=== PATIENT | male | born 1930 | race Caucasian/White ===

== ENCOUNTER → 2016-09-24 | Day surgery (SDC) | payer MEDICARE, OTHER ==
[~2016-09-24] MED LIST: ASPI-630 PO; ATOR40TA59 PO; AZEL137S3 NS; CA C1TAB36 PO; CARV3.122 PO; CLON0.2T PO; DARB40VI SQ; FERR-26 PO; GUAI100L12 PO; HYDROmorphone 2 MG/ML VIAL IV PRN; IV RINGERS,LACTATED 1000ML 1,000 ML IV SCH; LEVO75TA5 PO; LIDOCAINE 1% 1 ML SYRINGE. ID PRN; LIDOCAINE 2% PF Vial for OR 5 ML VIAL. ONE; LORA10TA3 PO; MELA3TAB2 PO; MORPHINE SULFATE 2 MG/ML DISP.SYRIN. IV PRN; MULT-18 PO; ONDA4TAB11 IV; ONDANSETRON PF 4 MG/2 ML VIAL. IV PRN; PANT40TA5 PO; POLY17PO29 PO; PROCHLORPERAZINE 10 MG/2 ML VIAL. IV PRN; PROPOFOL 20 ML IV ONE; SENN-6 PO; SEVE800T9 PO; fentaNYL PF VIAL 100 MCG/2 ML VIAL IV PRN
[2016-09-24 13:09] VITALS: BP 156/74
== END | disposition home or self-care (01) ==
LOC: ENDOS 12:01
PROVIDERS: ATTEND Internal Medicine Gastroenterology
DX: K29.50 Unspecified chronic gastritis without bleeding (principal); K21.9 Gastro-esophageal reflux disease without esophagitis; I10 Essential (primary) hypertension; M19.90 Unspecified osteoarthritis, unspecified site; E78.2 Mixed hyperlipidemia; F17.200 Nicotine dependence, unspecified, uncomplicated; Z72.89 Other problems related to lifestyle; Z85.46 Personal history of malignant neoplasm of prostate; E78.00 Pure hypercholesterolemia, unspecified; I48.91 Unspecified atrial fibrillation; D64.9 Anemia, unspecified; I25.10 Atherosclerotic heart disease of native coronary artery without angina pectoris
CPT/HCPCS: 43235; J2704

== ENCOUNTER 2016-11-09 11:37 | Observation (INO) | payer MEDICARE, OTHER ==
[2016-11-09] VITALS (9 sets, daily range): BP systolic 123–169; BP diastolic 57–74
[~2016-11-09] VITALS: Ht 185.4 cm; Wt 90.3 kg
[~2016-11-09 11:37] MED LIST changes: +ACET325T9 PO; +AMIO200T2 PO; +FEXO1TAB27 PO; -HYDROmorphone 2 MG/ML VIAL IV PRN; -IV RINGERS,LACTATED 1000ML 1,000 ML IV SCH; -LIDOCAINE 1% 1 ML SYRINGE. ID PRN; -LIDOCAINE 2% PF Vial for OR 5 ML VIAL. ONE; +LUBI8CAP4 PO; -MORPHINE SULFATE 2 MG/ML DISP.SYRIN. IV PRN; -ONDANSETRON PF 4 MG/2 ML VIAL. IV PRN; -PROCHLORPERAZINE 10 MG/2 ML VIAL. IV PRN; -PROPOFOL 20 ML IV ONE; +SUCR1TAB PO; +TAMS0.4C2 PO; +TRAZ50TA15 PO; -fentaNYL PF VIAL 100 MCG/2 ML VIAL IV PRN
[2016-11-09] MEDS ORDERED: IV RINGERS,LACTATED 1000ML 1,000 ML IV ONE (12:00)
[2016-11-09] MEDS ORDERED: ceFAZolin 2GM PREMIX 2 GM/50 ML BAG IV ONE (12:00)
[2016-11-09 12:33] LABS: BASO % 1 % (0-3); EOS % 2 % (0-3); HEMATOCRIT 34.4 % (39.0-53.0); HEMOGLOBIN 11.6 g/dL (13.0-17.5); LYMPH # 1.4 x10^3/uL (1.0-4.8); LYMPH % 21 % (24-48); MEAN CORPUSCULAR HEMOGLOBIN 33 pg (25-35); MEAN CORPUSCULAR HGB CONC 34 g/dL (31-37); MEAN CORPUSCULAR VOLUME 97 fL (79-100); MONO % 8 % (0-9); NEUT % 68 % (31-73); PLATELET COUNT 179 x10^3/uL (140-400); RED BLOOD COUNT 3.54 x10^6/uL (4.30-5.70); RED CELL DISTRIBUTION WIDTH 13.7 % (11.5-14.5); WHITE BLOOD COUNT 6.6 x10^3/uL (4.0-11.0)
[2016-11-09] MEDS ORDERED: DEXAMETHASONE SOD PHOS 20 MG/5 ML VIAL. ONE (14:30)
[2016-11-09] MEDS ORDERED: ONDANSETRON PF 4 MG/2 ML VIAL. ONE (14:30)
[2016-11-09] MEDS ORDERED: fentaNYL PF VIAL 100 MCG/2 ML VIAL ONE ×4 (14:30→18:14)
[2016-11-09] MEDS ORDERED: LIDOCAINE 2% PF Vial for OR 5 ML VIAL. ONE (14:30)
[2016-11-09] MEDS ORDERED: PROPOFOL 20 ML IV ONE (14:30)
[2016-11-09] MEDS ORDERED: NEOSTIGMINE 10 MG/10 ML VIAL. ONE (14:36)
[2016-11-09] MEDS ORDERED: GLYCOPYRROLATE 1 MG/5 ML VIAL. ONE ×2 (14:37→17:07)
[2016-11-09] MEDS ORDERED: SEVOFLURANE > 120 MINUTES. IH ONE (15:08)
[2016-11-09] MEDS ORDERED: BUPIVAC MPF-EPI 0.5%-1:200000 30 ML VIAL. ONE (15:35)
[2016-11-09] MEDS ORDERED: IOHEXOL 300 MG/ML 50 ML VIAL. ONE (15:35)
[2016-11-09] MEDS ORDERED: FAMOTIDINE 20 MG/2 ML VIAL ONE (16:21)
[2016-11-09] MEDS ORDERED: SURGICEL HEMOSTAT 4X8 EACH. ONE (16:53)
--- NOTE | 2016-11-09 17:00 | RAD ---
Intraoperative cholangiogram Indication: Intraoperative cholangiogram Technique: Fluoroscopic intraoperative cholangiogram with 33 seconds of fluoroscopy time and 6 images. Comparison: None Findings: The common bile duct, cystic duct, common hepatic duct and proximal right and left hepatic ducts are opacified with contrast. No filling defect is seen within the common bile duct. Narrowing is seen in the distal CBD in the ampullary region. Impression: No CBD filling defects to suggest stones.
[2016-11-09] MEDS ORDERED: NEOSTIGMINE METHYLSULFATE 5 MG/5 ML SYRINGE. ONE (17:08)
[2016-11-09] MEDS ORDERED: IV RINGERS,LACTATED 1000ML 1,000 ML IV SCH (17:13)
[2016-11-09] MEDS ORDERED: ONDANSETRON PF 4 MG/2 ML VIAL. IV PRN ×2 (17:15→17:30)
[2016-11-09] MEDS ORDERED: MORPHINE SULFATE 2 MG/ML DISP.SYRIN. IV PRN (17:15)
[2016-11-09] MEDS ORDERED: fentaNYL PF VIAL 100 MCG/2 ML VIAL IV PRN (17:15)
[2016-11-09] MEDS ORDERED: HYDROmorphone 2 MG/ML VIAL IV PRN ×2 (17:15→17:30)
[2016-11-09] MEDS ORDERED: PROCHLORPERAZINE 10 MG/2 ML VIAL. IV PRN (17:15)
[2016-11-09] MEDS ORDERED: LIDOCAINE 1% 1 ML SYRINGE. ID PRN (17:15)
[2016-11-09] MEDS: IV 1/2 NORMAL SALINE 1,000 ML IV SCH (17:18)
--- NOTE | 2016-11-09 17:18 | PDOC4 ---
Operative Note Operative Note Operative Note: Preoperative Diagnosis: Calculous cholecystitis Postoperative Diagnosis: Same Procedure: Laparoscopic cholecystectomy with intraoperative cholangiogram Surgeons: Jeff Chief Analytics Officer: Johanna DAVIDSON Anesthesia: Gen. Estimated Blood Loss: 25 mL Specimen: Gallbladder to pathology Drains: None Complications: None Indications: The patient is an 86-year-old male who is been experiencing recurrent upper abdominal pain. His evaluation identified gallstones. Surgical treatment was offered by means of a laparoscopic cholecystectomy. The risks of surgery were discussed which include bleeding, infection, bile duct injury, bile leak, pain, the potential for additional surgeries or procedures. The patient understands and would like to proceed. Description: The patient was taken to the operating room and laid supine on the operating table. General anesthesia was performed. The abdomen was prepped with ChloraPrep and draped in a standard surgical fashion. A small infraumbilical incision was made with a scalpel. The Veress needle was then inserted and a pneumoperitoneum was then created. A 5 mm trocar was then inserted and the laparoscope was introduced. In the upper midabdomen an 11 mm trocar was inserted and in the right upper quadrant one 5 mm trocar was inserted and one 2.3 mm mini lap grasper was inserted. There were several upper abdominal adhesions and adhesions of omentum to the gallbladder. These were freed up and the gallbladder was retracted cephalad. The cystic duct was dissected free from surrounding tissues. One clip was placed on the duct near the gallbladder junction. An opening was made in the duct and a cholangiocatheter placed within and secured with a clip. Using contrast dye and fluoroscopy an intraoperative cholangiogram was performed that appeared unremarkable. The clip and catheter were then withdrawn. Three clips were placed on the cystic duct and it was divided. The cystic artery was then identified, dissected free, doubly clipped and divided as well. A posterior branch was also clipped and divided. The gallbladder was then mobilized away from the liver with cautery. The gallbladder appeared to have a somewhat prominent fibrotic reaction consistent with chronic cholecystitis. This obscured some of the separation planes of the liver. The gallbladder was fully mobilized and a surgicel pack was placed on the gallbladder fossa to assist with hemostasis. The gallbladder was then placed in an endoscopic bag and extracted at the superior trocar site. The fascia there was closed with 0 Vicryl sutures. All blood and irrigation fluid was suctioned and hemostasis was good. The remaining ports were removed and the pneumoperitoneum was relieved. The skin incisions were injected with half percent Marcaine with epinephrine, and all were closed using 4-0 Monocryl suture. Steri-Strips and dressings were then applied. The patient tolerated the procedure well and was sent to the recovery room in stable condition. At the end of the case all counts were correct. DAISY GRIFFIN MD Nov 09, 2016 17:18
[2016-11-09] MEDS ORDERED: MORPHINE SULFATE 10 MG/ML VIAL. ONE (17:21)
[2016-11-09] MEDS ORDERED: 0.9 % SODIUM CHLORIDE 10 ML DISP.SYRIN. IV PRN (17:30)
[2016-11-09] MEDS ORDERED: DEXTROSE 50% 25 GM / 50ML DISP.SYRIN. IV PRN (17:30)
[2016-11-09] MEDS ORDERED: HYDROcodone/APAP 5/325MG 1 TAB TABLET PO PRN (17:30)
[2016-11-09] MEDS: fentaNYL PF VIAL 100 MCG/2 ML VIAL IV PRN ×3 (17:32→18:17)
[2016-11-09] MEDS ORDERED: PROCHLORPERAZINE 10 MG/2 ML VIAL. ONE (17:33)
[2016-11-09] MEDS ORDERED: ATORVASTATIN CALCIUM 40 MG TABLET. PO SCH (21:00)
[2016-11-09] MEDS: AZELASTINE NASAL SPRAY 30ML BOTTLE. NS SCH (21:00)
[2016-11-09] MEDS ORDERED: TAMSULOSIN 0.4 MG CAP.ER.24H. PO SCH (21:00)
[2016-11-09] MEDS ORDERED: traZODone 50 MG TABLET. PO SCH (21:00)
[2016-11-09] MEDS: LUBIPROSTONE 8 MCG CAPSULE PO SCH (21:10)
[2016-11-09] MEDS: SENNOSIDES/DOCUSATE 8.6/50MG TABLET. PO SCH (21:10)
[2016-11-09] MEDS: HYDROcodone/APAP 5/325MG 1 TAB TABLET PO PRN (21:13)
--- NOTE | 2016-11-09 23:50 | ACF ---
Admission Forms Criteria ABDOMINAL PAIN Clinical Indications for Admission to Inpatient Care ( chefornak/check or initial the applicable condition/criteria): Admission is indicated for ANY ONE of the following (1)(2)(3)(4)(5)(6): [X]I. Surgery needed that cannot be performed on ambulatory basis [ ]II. Peritoneal signs present (eg, rebound tenderness, rigidity) [ ]III. Evaluation requires patient to not eat or drink for extended period ( eg, more than 24 hours). [ ]IV. Inpatient admission required[B] rather than observation care (see Abdominal Pain: Observation Care guideline as appropriate) because of ANY ONE of the following(7)(8)(9): [ ] a) Hemodynamic instability [ ]b) Severe pain requiring acute inpatient management [ ]c) Identification of etiology or finding that requires inpatient care (eg, aortic dissection, free air,bowel ischemia)(10) [ ]d) Absent bowel sounds with complete ileus (11) [ ]e) Signs of intestinal obstruction[C] [ ]f) Suspected toxic megacolon [ ]g) Severe electrolyte abnormalities requiring inpatient care [ ]h) High fever or infection requiring inpatient admission as indicated by ANY ONE of the following (12)(13): [ ]i) Appropriate outpatient or observation care antimicrobial treatment unavailable, not effective, or not feasible [ ]ii) Documented bacteremia [ ]iii) Temperature greater than 104.9 degrees F (40.5 degrees C) (oral) [ ]iv) Temperature greater than 103.1 degrees F (39.5 degrees C) ( oral) or less than 96.8 degrees F (36 degrees C) (rectal) that does not respond to all emergency treatment measures [ ]i) IV fluid required rather than oral rehydration to replace significant ongoing (eg, for greater than 24 hours) losses (greater than 3 L/m2 per day)(14)(15) [ ]j) Percutaneous or open drainage (eg, abscess, biliary tract) procedures [ ]k) Parenteral nutrition regimen that must be implemented on inpatient basis [ ]l) Other condition, treatment, or monitoring requiring inpatient admission Extended stay beyond goal length of stay may be needed for (1)(3)(4)(10)(16): [ ]a) Surgery (e.g., colectomy, revascularization procedure) [ ]b) Persistent abdominal pain with suspected intra-abdominal process [ ]c) Diagnosed condition requiring continued stay (e.g., pancreatitis, complicated diverticulitis) The original [facility] content created by [facility] has been revised. The portions of the content which have been revised are identified through the use of italic text, and [facility] has neither reviewed nor approved the modified material.All other unmodified content is copyright [facility]. Please see references footnoted in the original [facility] edition 2015 Admission Criteria Met?: Yes MICHELLE TAN Nov 09, 2016 23:50
[2016-11-10 03:54] VITALS: BP 148/68
[2016-11-10] MEDS: HYDROcodone/APAP 5/325MG 1 TAB TABLET PO PRN ×2 (06:30→11:39)
[2016-11-10 07:00] VITALS: BP 134/60
[2016-11-10] MEDS ORDERED: LEVOTHYROXINE 75 MCG TABLET PO SCH (07:00)
[2016-11-10] MEDS ORDERED: PANTOPRAZOLE 40 MG TABLET.DR. PO SCH (07:30)
[2016-11-10] MEDS: LUBIPROSTONE 8 MCG CAPSULE PO SCH (08:45)
[2016-11-10] MEDS: SUCRALFATE 1 GM TABLET. PO SCH ×2 (08:45→11:38)
[2016-11-10] MEDS: SENNOSIDES/DOCUSATE 8.6/50MG TABLET. PO SCH (08:46)
[2016-11-10] MEDS ORDERED: AMIODARONE HCL 200 MG TABLET. PO SCH (09:00)
[2016-11-10] MEDS ORDERED: ASPIRIN CHEWABLE 81 MG TABLET. PO SCH (09:00)
[2016-11-10] MEDS ORDERED: FERROUS SULFATE 325 MG TABLET. PO SCH (09:00)
[2016-11-10] MEDS: AZELASTINE NASAL SPRAY 30ML BOTTLE. NS SCH (09:40)
[2016-11-10] MEDS: IV 1/2 NORMAL SALINE 1,000 ML IV SCH (09:41)
[2016-11-10 11:00] VITALS: BP 119/58
--- NOTE | 2016-11-10 12:19 | PDOC ---
FRANKIE HOLM [employer] SUPERVISOR 11/10/16 1219: SURGICAL PROGRESS NOTE Subjective tolerating diet feeling well PT to see prior to discharge Vital Signs Vital Signs Date Time Temp Pulse Resp B/P (MAP) Pulse Ox O2 Delivery O2 Flow Rate FiO2 11/10/16 11:39 Room Air 11/10/16 11:00 97.5 57 16 119/58 (78) 93 97.5 11/10/16 03:54 2.0 I&O Intake and Output 11/10/16 07:00 Intake Total 2690 ml Balance 2690 ml Intake Oral 240 ml IV Total 1950 ml Other 500 ml General: Alert, Oriented X3, Cooperative, No acute distress Abdomen: Soft, Other (lap sites c/d/i, no erythema ) Labs Laboratory Tests Test 11/09/16 12:15 White Blood Count 6.6 x10^3/uL (4.0-11.0) Red Blood Count 3.54 x10^6/uL (4.30-5.70) Hemoglobin 11.6 g/dL (13.0-17.5) Hematocrit 34.4 % (39.0-53.0) Mean Corpuscular Volume 97 fL (79-100) Mean Corpuscular Hemoglobin 33 pg (25-35) Mean Corpuscular Hemoglobin Concent 34 g/dL (31-37) Red Cell Distribution Width 13.7 % (11.5-14.5) Platelet Count 179 x10^3/uL (140-400) Neutrophils (%) (Auto) 68 % (31-73) Lymphocytes (%) (Auto) 21 % (24-48) Monocytes (%) (Auto) 8 % (0-9) Eosinophils (%) (Auto) 2 % (0-3) Basophils (%) (Auto) 1 % (0-3) Neutrophils # (Auto) 4.5 x10^3uL (1.8-7.7) Lymphocytes # (Auto) 1.4 x10^3/uL (1.0-4.8) Monocytes # (Auto) 0.5 x10^3/uL (0.0-1.1) Eosinophils # (Auto) 0.1 x10^3/uL (0.0-0.7) Basophils # (Auto) 0.0 x10^3/uL (0.0-0.2) Problem List s/p lap alana will plan dc home, if PT safe for discharge Problems: DAISY GRIFFIN MD 11/10/16 7773: SURGICAL PROGRESS NOTE Assessment/Plan Agree with above Problems: FRANKIE HOLM [employer] SUPER[employer]OR Nov 10, 2016 12:19 DAISY GRIFFIN MD Nov 10, 2016 16:45
[2016-11-10 15:00] VITALS: BP 144/63
--- NOTE | 2016-11-12 08:59 | PATHOLOGY ---
PATHOLOGY REPORT * * * * * * * * FINAL DIAGNOSIS: Gallbladder, laparoscopic cholecystectomy: - Cholelithiasis. - Chronic cholecystitis, mild. COMMENT: There is no evidence of malignancy. (JPM:mgr; 11/11/2016) REPORT ELECTRONICALLY SIGNED BY: Donald Hannah M.D. DATE/TIME: 11/12/2016 08:59 * * * * * * * * GROSS PATHOLOGY: Received in formalin labeled "Trace Sanderson, gallbladder and contents," is a 6.8 x 2.0 x 1.8 cm, partially opened gallbladder with dark green bile stained serosal surfaces. Opening the gallbladder reveals dark green velvety mucosa and an average wall thickness of 0.6 cm. Calculi are present and no masses are noted grossly. [employer] Testing sections from the body and fundus are submitted along with the proximal margin in cassette A1. (JPM; 11/10/16) INITIAL CPT CODE(S): A; 16770 Professional services performed [place] [email or web address] [address] Technical services performed by [facility] at [address] [place] [address]. SPECIMEN(S) RECEIVED: A.Gallbladder sac with contents CLINICAL HISTORY: Symptomatic cholelithiasis PATIENT: TRACE SANDERSON Jocelyn /AGE: 6 1930 (Age: 86) PATIENT #: [id number] ALT CASE #: SPECIMEN COLLECTION DATE: 11/09/2016 SPECIMEN RECEIVED DATE: 11/10/2016 [facility] - [address] [place] [address] - PHONE: [phone] * * * END OF REPORT * * *
--- NOTE | 2016-11-12 15:18 | PDOC3 ---
Discharge Summary Visit Information Date of Admission: Nov 09, 2016 Date of Discharge: Nov 10, 2016 Admitting Diagnosis: Calculous cholecystitis Final Diagnosis Calculous cholecystitis Brief Hospital Course Allergies Allergies Coded Allergies Type Severity Reaction Last Updated Verified No Known Drug Allergies 11/09/16 No Brief Hospital Course Mr. Sanderson is a 86 old male who presented with Calculous cholecystitis, he underwent a laparoscopic cholecystectomy. Tolerating diet, ambulating, urinating, and pain managed. Ready for discharge home Discharge Information Condition at Discharge: Improved Follow Up: Weeks (2) Disposition/Orders: D/C to Home Scheduled Acetaminophen (Tylenol), 2 TAB PO PRN Q4HRS, (Reported) Amiodarone Hcl (Amiodarone Hcl), 1 TAB PO DAILY, (Reported) Aspirin (Aspirin), 1 TAB PO DAILY, (Reported) Atorvastatin Calcium (Atorvastatin Calcium), 1 TAB PO QHS, (Reported) Azelastine Hcl (Azelastine Hcl), 2 SPRAY NS BID, (Reported) Ca Carbonate/Vitamin D3/Vit K (Calcium + Vit D & K Chew Tab), 1 EACH PO DAILY, ( Reported) Ferrous Sulfate (Ferrous Sulfate), 1 TAB PO DAILY, (Reported) Fexofenadine/Pseudoephedrine (Shivani-D 12 Hour Tablet), 1 TAB PO BID, (Reported ) Levothyroxine Sodium (Levothyroxine Sodium), 1 TAB PO DAILY, (Reported) Lubiprostone (Amitiza), 1 CAP PO BID, (Reported) Pantoprazole Sodium (Pantoprazole Sodium), 1 TAB PO DAILY, (Reported) Polyethylene Glycol 3350 (Miralax), 1 PACKET PO DAILY, (Reported) Sennosides/Docusate Sodium (Senna S Tablet), 1 EACH PO BID, (Reported) Sucralfate (Sucralfate), 1 TAB PO TID, (Reported) Tamsulosin Hcl (Tamsulosin Hcl), 1 CAP PO QHS, (Reported) Trazodone Hcl (Trazodone Hcl), 1 TAB PO QHS, (Reported) FRANKIE HOLM APRN Nov 12, 2016 15:18
== END 2016-11-10 16:45 | disposition home or self-care (01) ==
LOC: SURG 11:37 → 4 NORTH 17:30
PROVIDERS: ADMIT Surgery; ATTEND Surgery
DX: K80.10 Calculus of gallbladder with chronic cholecystitis without obstruction (principal)
CPT/HCPCS: 36415; 47563; 74300; 85025; 97161; 97165; C1769; G0378; G0379; J0690; J0780; J1100; J2270; J2405; J2704; J2710; J3010; J3490; J7030; Q9967; S0028; J2001

== ENCOUNTER 2017-07-18 08:04 | Emergency (ER) | payer MEDICARE, OTHER ==
[2017-07-18 09:00] LABS: ADD MAN DIFF? NO
[2017-07-18 09:13] LABS: BASO % 0 % (0-3); EOS # 0.1 x10^3/uL (0.0-0.7); EOS % 1 % (0-3); HEMATOCRIT 33.8 % (39.0-53.0); HEMOGLOBIN 11.8 g/dL (13.0-17.5); LYMPH # 0.7 x10^3/uL (1.0-4.8); LYMPH % 13 % (24-48); MEAN CORPUSCULAR HEMOGLOBIN 34 pg (25-35); MEAN CORPUSCULAR HGB CONC 35 g/dL (31-37); MEAN CORPUSCULAR VOLUME 96 fL (79-100); MONO # 0.6 x10^3/uL (0.0-1.1); MONO % 11 % (0-9); NEUT % 74 % (31-73); PLATELET COUNT 159 x10^3/uL (140-400); WHITE BLOOD COUNT 5.4 x10^3/uL (4.0-11.0)
[2017-07-18 09:14] LABS: ANION GAP 8 (6-14); BLOOD UREA NITROGEN 18 mg/dL (8-26); BUN/CREATININE RATIO 12 (6-20); CALCIUM 8.7 mg/dL (8.5-10.1); CARBON DIOXIDE 29 mmol/L (21-32); CHLORIDE 109 mmol/L (98-107); CREATININE 1.5 mg/dL (0.7-1.3); GFR 44.6; GLUCOSE 138 mg/dL (70-99); POTASSIUM 3.8 mmol/L (3.5-5.1); SODIUM 146 mmol/L (136-145)
[2017-07-18 09:20] LABS: ALK PHOS 85 U/L (46-116); ALT (SGPT) 15 U/L (16-63); AST (SGOT) 16 U/L (15-37); TOTAL BILIRUBIN 0.4 mg/dL (0.2-1.0); TOTAL PROTEIN 5.9 g/dL (6.4-8.2)
[2017-07-18 09:21] LABS: INFLUENZA A PATIENT NEGATIVE (NEGATIVE); INFLUENZA B PATIENT NEGATIVE (NEGATIVE); OBC FLU VALID
[2017-07-18 09:24] LABS: TROPONINI 0.024 ng/mL (0.000-0.055)
[2017-07-18 09:26] LABS: NT-PRO BNP 1916 pg/mL (0-449)
[2017-07-18] MEDS: IPRATRPIUM/ALBUTEROL 0.5/2.5MG 3 ML NEBU. NEB (10:21)
[2017-07-18] MEDS: BENZONATATE 100 MG CAPSULE. PO (11:13)
[2017-07-18 11:27] LABS: BILIRUBIN,URINE SMALL (NEG); CLARITY,URINE CLEAR; COLOR,URINE YELLOW; GLUCOSE,URINE NEGATIVE (NEG); NITRITE,URINE NEGATIVE (NEG); PROTEIN,URINE NEGATIVE (NEG-TRACE)
[2017-07-18 11:37] LABS: BACTERIA,URINE 0 /HPF (0-FEW); SQUAMOUS EPITHELIAL CELL,UR MOD /LPF; WBC,URINE 0 /HPF (0-4)
== END 2017-07-18 11:33 | disposition home or self-care (01) ==
LOC: ER 08:04
DX: R05 Cough (principal); R09.89 Other specified symptoms and signs involving the circulatory and respiratory systems; I10 Essential (primary) hypertension; Z79.899 Other long term (current) drug therapy
CPT/HCPCS: 36415; 71046; 80053; 81001; 83880; 84484; 85025; 87804; 87804-59; 93005; 94640; 99285; J7620

== ENCOUNTER 2020-07-02 16:35 | Emergency (ER) | payer MEDICARE, OTHER ==
[~2020-07-02] VITALS: Ht 185.4 cm; Wt 73.0 kg
[~2020-07-02 16:35] MED LIST changes: -AMIO200T2 PO; +AMIO200T6 PO; +BENZ100C PO; +CARV3.1210 PO; -CARV3.122 PO; +CETI10TA16 PO; -FERR-26 PO; +FERR325T14 PO; +FLUT9.9S NS; -MELA3TAB2 PO; +MELA3TAB4 PO; +ONDA-84 IV; -ONDA4TAB11 IV; -PANT40TA5 PO; +PANT40TA77 PO; -SENN-6 PO; +SENN-82 PO; +TRAZ-118 PO; -TRAZ50TA15 PO
--- NOTE | 2020-07-02 18:25 | PHYS DOC ---
Past Medical History Past Medical History: Cancer, Hypertension, Other Additional Past Medical Histor: non-compliant w/BP meds Past Surgical History: TURP, Other Smoking Status: Former Smoker Alcohol Use: None Drug Use: None General Adult EDM: Chief Complaint: TARRY STOOL HPI: HPI: Patient is a 89 yo male presenting for black tarry stools. This is a chronic issue, cites this has been going on for preceding 2-3 months. Painless stools with black tar appearance. PCP is following, patient had Hgb drawn in April and was 7.2. Results were communicated with patient today and he was subsequently advised to present to our ER for evaluation. Patient here with neighbor who assists in daily care. Patient denies any symptoms at present. He has history of colonoscopy, last ~5-10 years ago and unremarkable, no hx colon cancer, unknown if he had diverticulosis. No recent fever, syncope, lightheadedness/dizziness, cp, shob, ap. UTI symptoms, or changes in stool caliber. He has never required a blood transfusion in the past Review of Systems: Review of Systems: Fourteen body systems of review of systems have been reviewed. See HPI for pertinent positives and negative responses, other plunkett all other systems are negative, non-pertinent or non-contributory Heart Score: C/O Chest Pain: No HEART Score for Chest Pain: HEART Score for Chest Pain Response (Comments) Value History Slighlty/Non-Suspicious 0 ECG Normal 0 Age > 65 2 Risk Factors >3 Risk Factors or Hx CAD 2 Total 4 Risk Factors: Risk Factors: DM, Current or recent (<one month) smoker, HTN, HLP, family history of CAD, obesity. Risk Scores: Score 0 - 3: 2.5% MACE over next 6 weeks - Discharge Home Score 4 - 6: 20.3% MACE over next 6 weeks - Admit for Clinical Observation Score 7 - 10: 72.7% MACE over next 6 weeks - Early Invasive Strategies Allergies: Allergies: Allergies Coded Allergies Type Severity Reaction Last Updated Verified No Known Drug Allergies 11/09/16 No Physical Exam: PE: Constitutional: Well developed, well nourished, no acute distress, non-toxic appearance. HENT: Normocephalic, atraumatic, bilateral external ears normal, oropharynx moist with poor dentition, no oral exudates, nose normal. Eyes: PERRLA, EOMI, conjunctiva normal, no discharge. Neck: Normal range of motion, no tenderness, supple, no stridor. Cardiovascular: Heart rate regular, sinus rhythm, no murmurs rubs or gallops Lungs & Thorax: Bilateral breath sounds clear to auscultation Abdomen: Bowel sounds normal, soft, no tenderness, no masses, no pulsatile masses. Nonsurgical abdomen, no peritoneal signs. Rectal x1 external hemorrhoid, anal sphincter intact, no palpable abnormalities within rectal vault, minimal stool on glove back and tarry in appearance Skin: Warm, dry, no erythema, no rash. Back: No tenderness, no CVA tenderness. Extremities: No tenderness, no cyanosis, no clubbing, ROM intact, no edema. Neurologic: Alert and oriented X 3, grossly normal motor & sensory function, no focal deficits noted. Psychologic: Affect normal, judgement normal, mood normal. Current Patient Data: Labs: Laboratory Tests Test 07/02/20 18:20 07/02/20 18:35 Stool Occult Blood Positive White Blood Count 6.3 x10^3/uL Red Blood Count 3.43 x10^6/uL Hemoglobin 10.9 g/dL Hematocrit 32.9 % Mean Corpuscular Volume 96 fL Mean Corpuscular Hemoglobin 32 pg Mean Corpuscular Hemoglobin Concent 33 g/dL Red Cell Distribution Width 13.2 % Platelet Count 220 x10^3/uL Neutrophils (%) (Auto) 60 % Lymphocytes (%) (Auto) 25 % Monocytes (%) (Auto) 12 % Eosinophils (%) (Auto) 2 % Basophils (%) (Auto) 0 % Neutrophils # (Auto) 3.8 x10^3/uL Lymphocytes # (Auto) 1.6 x10^3/uL Monocytes # (Auto) 0.8 x10^3/uL Eosinophils # (Auto) 0.1 x10^3/uL Basophils # (Auto) 0.0 x10^3/uL Prothrombin Time 14.3 SEC Prothromb Time International Ratio 1.2 Activated Partial Thromboplast Time 29 SEC Sodium Level 146 mmol/L Potassium Level 4.0 mmol/L Chloride Level 110 mmol/L Carbon Dioxide Level 30 mmol/L Anion Gap 6 Blood Urea Nitrogen 29 mg/dL Creatinine 1.6 mg/dL Estimated GFR (Cockcroft-Gault) 41.1 BUN/Creatinine Ratio 18 Glucose Level 124 mg/dL Lactic Acid Level 0.8 mmol/L Calcium Level 9.1 mg/dL Total Bilirubin 0.4 mg/dL Aspartate Amino Transf (AST/SGOT) 14 U/L Alanine Aminotransferase (ALT/SGPT) 9 U/L Alkaline Phosphatase 63 U/L Total Protein 6.5 g/dL Albumin 3.3 g/dL Albumin/Globulin Ratio 1.0 Vital Signs: Vital Signs Date Time Temp Pulse Resp B/P (MAP) Pulse Ox O2 Delivery O2 Flow Rate FiO2 07/02/20 18:05 97.8 89 16 153/74 (100) 98 Room Air 97.8 Vital Signs Date Time Temp Pulse Resp B/P (MAP) Pulse Ox O2 Delivery O2 Flow Rate FiO2 07/02/20 19:47 76 20 117/57 (77) 96 Room Air 07/02/20 18:05 97.8 97.8 EKG: EKG: EKG ordered and interpreted by myself at 1835 hrs. as sinus rhythm at 76 bpm, pr olonged QRS at 166, prolonged QTC at 494 otherwise unremarkable intervals, no axis deviation, no STEMI Radiology/Procedures: Radiology/Procedures: [] Course & Med Decision Making: Course & Med Decision Making Hemodynamically stable patient with HPI and physical exam consistent with chronic GI bleed. Labs drawn, Hgb >7.2 when last checked in April. Patient asymptomatic. I discussed potential for hospital admission for observation and consideration for GI consult, it is unlikely an inpatient scope would be performed given chronicity and stability of patient. Patient and neighbor decided they would rather discharge home, contact PCP for repeat evaluation this week and pursue outpatient GI follow-up to discuss potential need for endoscopy I think this is appropriate as patient does not appear to have active hemorrhage, is asymptomatic, and has good neighbor/home health services and support Strict return precautions were discussed with good understanding, all questions and concerns addressed prior to departure Lucindaon Disclaimer: Yenny Disclaimer: This electronic medical record was generated, in whole or in part, using a voice recognition dictation system. Departure Departure Impression: Primary Impression: Black tarry stools Disposition: HOME / SELF CARE / HOMELESS Condition: STABLE Referrals: KP RODRIGUEZ DO (PCP) Patient Instructions: Bloody Stools, Stool Examination Additional Instructions: As discussed prior to ER departure, there was no emergent and/or surgical findi ngs based on comprehensive ER visit today. We reviewed hemoglobin levels of 10.9 which is elevated based on last hemoglobin of 7.2 that was drawn in April. I discussed potential need for hospitalization to see our GI physicians and if needed, have an endoscopy performed but joint decision was made to defer given this is a chronic issue. You have good support with your outpatient PCP, please call her tomorrow to review ER visit today and need to see GI within upcoming week for evaluation and consideration for outpatient endoscopy. If any concerning signs or symptoms present prior to outpatient follow-up please do not hesitate to come back for repeat evaluation. It was a pleasure to take care of you today and I wish you the the best going forward SERINA MOORE DO Jul 02, 2020 18:25
--- NOTE | 2020-07-02 18:36 | EKG ---
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
[2020-07-02 18:39] LABS: FECAL OB PT POSITIVE (NEG)
[2020-07-02 18:47] LABS: BASO % 0 % (0-3); EOS # 0.1 x10^3/uL (0.0-0.7); EOS % 2 % (0-3); HEMATOCRIT 32.9 % (39.0-53.0); HEMOGLOBIN 10.9 g/dL (13.0-17.5); LYMPH # 1.6 x10^3/uL (1.0-4.8); LYMPH % 25 % (24-48); MEAN CORPUSCULAR HEMOGLOBIN 32 pg (25-35); MEAN CORPUSCULAR HGB CONC 33 g/dL (31-37); MEAN CORPUSCULAR VOLUME 96 fL (79-100); MONO # 0.8 x10^3/uL (0.0-1.1); MONO % 12 % (0-9); NEUT # 3.8 x10^3/uL (1.8-7.7); NEUT % 60 % (31-73); PLATELET COUNT 220 x10^3/uL (140-400); RED BLOOD COUNT 3.43 x10^6/uL (4.30-5.70); RED CELL DISTRIBUTION WIDTH 13.2 % (11.5-14.5); WHITE BLOOD COUNT 6.3 x10^3/uL (4.0-11.0)
[2020-07-02 18:57] LABS: PROTHROMBIN TIME PATIENT 14.3 SEC (11.7-14.0)
[2020-07-02 19:13] LABS: CALCIUM 9.1 mg/dL (8.5-10.1); CREATININE 1.6 mg/dL (0.7-1.3); GFR 41.1
[2020-07-02 19:20] LABS: ALBUMIN 3.3 g/dL (3.4-5.0); TOTAL BILIRUBIN 0.4 mg/dL (0.2-1.0); TOTAL PROTEIN 6.5 g/dL (6.4-8.2)
[2020-07-02 19:47] VITALS: BP 117/57
== END 2020-07-02 20:04 | disposition home or self-care (01) ==
LOC: ER 16:35
DX: R79.9 Abnormal finding of blood chemistry, unspecified (principal); K92.1 Melena; I10 Essential (primary) hypertension; Z87.891 Personal history of nicotine dependence
CPT/HCPCS: 36415; 80053; 82274; 83605; 85025; 85610; 85730; 93005; 99284

== ENCOUNTER 2021-04-29 11:38 | Emergency (ER) | payer BC, MEDICARE, OTHER ==
[~2021-04-29] VITALS: Ht 185.4 cm; Wt 54.5 kg
[~2021-04-29 11:38] MED LIST changes: +AMIO200T53 PO; -AMIO200T6 PO
[2021-04-29] MEDS ORDERED: DEXAMETHASONE SOD PHOS 20 MG/5 ML VIAL. IV ONE (12:15)
[2021-04-29] MEDS ORDERED: IV NORMAL SALINE 1000ML BAG 1,000 ML IV ONE (12:15)
--- NOTE | 2021-04-29 12:17 | EKG ---
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
[2021-04-29 12:30] LABS: BASO % 0 % (0-3); EOS % 0 % (0-3); HEMATOCRIT 38.8 % (39.0-53.0); HEMOGLOBIN 12.5 g/dL (13.0-17.5); LYMPH # 1.2 x10^3/uL (1.0-4.8); LYMPH % 13 % (24-48); MEAN CORPUSCULAR HEMOGLOBIN 33 pg (25-35); MEAN CORPUSCULAR HGB CONC 32 g/dL (31-37); MEAN CORPUSCULAR VOLUME 102 fL (79-100); MONO # 0.4 x10^3/uL (0.0-1.1); MONO % 5 % (0-9); NEUT # 7.3 x10^3/uL (1.8-7.7); NEUT % 82 % (31-73); PLATELET COUNT 207 x10^3/uL (140-400); RED BLOOD COUNT 3.81 x10^6/uL (4.30-5.70); RED CELL DISTRIBUTION WIDTH 15.4 % (11.5-14.5)
[2021-04-29] MEDS ORDERED: cefTRIAXone IV Push 1 GM VIAL. IVP ONE (12:30)
[2021-04-29] MEDS ORDERED: AZITHROMYCIN 500 MG in IV NORMAL SALINE 250ML 250 ML IV ONE (12:30)
--- NOTE | 2021-04-29 12:31 | RAD ---
EXAM: Chest, single view. HISTORY: Shortness of air. COMPARISON: 07/18/2017. FINDINGS: A frontal view of the chest obtained. There is diffuse lower lobe predominant interstitial infiltrate. There are suspected small pleural effusions. There is a stable cardiac silhouette and car diac pacemaker. There is postoperative change involving the aortic valve. IMPRESSION: Diffuse interstitial infiltrate with suspected small pleural effusions. Electronically signed by: Silvia Logan MD (04/29/2021 12:29 PM) [id number]
--- NOTE | 2021-04-29 12:37 | PHYS DOC ---
Past Medical History Past Medical History: Cancer, Hypertension, Hypothyroid, Other Additional Past Medical Histor: non-compliant w/BP meds (JOSE RAM APRN) Past Surgical History: TURP, Other (JOSE RAM APRN) Smoking Status: Former Smoker Alcohol Use: None Drug Use: None (JOSE RAM APRN) General Adult EDM: Chief Complaint: SHORTNESS OF BREATH HPI: HPI: Patient is an 89-year-old male who presents today via [facility] with complaint of shortness of air since last evening. Patient is a very poor historian, but from what we can obtain from EMS and the patient he has been sick since yesterday he was seen at a clinic or doctor's office yesterday and ordered Zofran for nausea and vomiting, were not even sure who called 911 for him but EMS got the call for shortness of air. EMS states that her sats on scene were 94%, when patient presented here to the emergency department his room air sat wa s 72% and he was having increased work of breathing. Patient states he has had 1 COVID vaccine we are unsure which one he had. I did review patient's past records from here at [facility] he has a past medical history of hypertension, cancer of unknown kind, former smoker, and hypothyroidism. (JOSE RAM TRAINING AND DEVELOPMENT OFFICER) Review of Systems: Review of Systems: Constitutional: Denies fever or chills. [] Eyes: Denies change in visual acuity. [] HENT: Denies nasal congestion or sore throat. [] Respiratory: Shortness of air denies cough Cardiovascular: Denies chest pain or edema. [] GI: Denies abdominal pain, nausea, vomiting, bloody stools or diarrhea. [] : Denies dysuria. [] Musculoskeletal: Denies back pain or joint pain. [] Integument: Denies rash. [] Neurologic: Denies headache, focal weakness or sensory changes. [] Endocrine: Denies polyuria or polydipsia. [] Lymphatic: Denies swollen glands. [] Psychiatric: Denies depression or anxiety. [] (JOSE RAM APRN) Heart Score: C/O Chest Pain: N/A Risk Factors: Risk Factors: DM, Current or recent (<one month) smoker, HTN, HLP, family history of CAD, obesity. Risk Scores: Score 0 - 3: 2.5% MACE over next 6 weeks - Discharge Home Score 4 - 6: 20.3% MACE over next 6 weeks - Admit for Clinical Observation Score 7 - 10: 72.7% MACE over next 6 weeks - Early Invasive Strategies (JOSE RAM TRAINING AND DEVELOPMENT OFFICER) Current Medications: Current Medications Medications (Trade) Dose Ordered Sig/Steve Start Time Stop Time Status Last Admin Dose Admin Azithromycin 500 mg/Sodium Chloride 250 ml @ 250 mls/hr 1X ONCE 04/29/21 12:30 04/29/21 13:29 Ceftriaxone Sodium (Rocephin) 1 gm 1X ONCE 04/29/21 12:30 04/29/21 12:31 DC Dexamethasone Sodium Phosphate (Decadron) 10 mg 1X ONCE 04/29/21 12:15 04/29/21 12:16 DC 04/29/21 12:18 10 MG Sodium Chloride 1,000 ml @ 999 mls/hr 1X ONCE 04/29/21 12:15 04/29/21 13:15 04/29/21 12:18 999 MLS/HR (JOSE RAM TRAINING AND DEVELOPMENT OFFICER) Allergies: Allergies: Allergies Coded Allergies Type Severity Reaction Last Updated Verified No Known Drug Allergies 11/09/16 No (JOSE RAM APRN) Physical Exam: PE: Constitutional: Elderly, toxic, moderate distress male HENT: Normocephalic, atraumatic, bilateral external ears normal, oropharynx moist, no oral exudates, nose normal. [] Eyes: PERRLA, EOMI, conjunctiva normal, no discharge. [] Neck: Normal range of motion, no tenderness, supple, no stridor. [] Cardiovascular:Heart rate regular rhythm, no murmur [] Lungs & Thorax: Bilateral breath sounds crackles, rhonchi, rales, increased work of breathing. Abdomen: Bowel sounds normal, soft, no tenderness, no masses, no pulsatile masses. [] Skin: Pale cool and moist Back: No tenderness, no CVA tenderness. [] Extremities: Extremities cyanosis noted at the fingertips and toes, 1+ pedal pulses trace edema bilateral extremities Neurologic: Alert and oriented X 2, normal motor function, normal sensory fun ction, no focal deficits noted. [] Psychologic: Affect normal, judgement normal, mood normal. [] (JOSE RAM APRN) Current Patient Data: Labs: Laboratory Tests Test 04/29/21 12:05 04/29/21 12:07 Influenza Type A Antigen Negative Influenza Type B Antigen Negative SARS-CoV-2 Antigen (Rapid) Negative White Blood Count 9.0 x10^3/uL Red Blood Count 3.81 x10^6/uL Hemoglobin 12.5 g/dL Hematocrit 38.8 % Mean Corpuscular Volume 102 fL Mean Corpuscular Hemoglobin 33 pg Mean Corpuscular Hemoglobin Concent 32 g/dL Red Cell Distribution Width 15.4 % Platelet Count 207 x10^3/uL Neutrophils (%) (Auto) 82 % Lymphocytes (%) (Auto) 13 % Monocytes (%) (Auto) 5 % Eosinophils (%) (Auto) 0 % Basophils (%) (Auto) 0 % Neutrophils # (Auto) 7.3 x10^3/uL Lymphocytes # (Auto) 1.2 x10^3/uL Monocytes # (Auto) 0.4 x10^3/uL Eosinophils # (Auto) 0.0 x10^3/uL Basophils # (Auto) 0.0 x10^3/uL Sodium Level 145 mmol/L Potassium Level 5.0 mmol/L Chloride Level 105 mmol/L Carbon Dioxide Level 26 mmol/L Anion Gap 14 Blood Urea Nitrogen 38 mg/dL Creatinine 1.8 mg/dL Estimated GFR (Cockcroft-Gault) 35.8 BUN/Creatinine Ratio 21 Glucose Level 257 mg/dL Lactic Acid Level 4.8 mmol/L Calcium Level 9.0 mg/dL Total Bilirubin 1.0 mg/dL Aspartate Amino Transf (AST/SGOT) 30 U/L Alanine Aminotransferase (ALT/SGPT) 29 U/L Alkaline Phosphatase 100 U/L Troponin I High Sensitivity 39 ng/L WK-Yys-G-Type Natriuretic Peptide 64691 pg/mL Total Protein 7.4 g/dL Albumin 3.5 g/dL Albumin/Globulin Ratio 0.9 Lipase 94 U/L Current Medications Medications (Trade) Dose Ordered Sig/Steve Route PRN Reason Start Time Stop Time Status Last Admin Dose Admin Dexamethasone Sodium Phosphate (Decadron) 10 mg 1X ONCE IV 04/29/21 12:15 04/29/21 12:16 DC 04/29/21 12:18 Sodium Chloride 1,000 ml @ 999 mls/hr 1X ONCE IV 04/29/21 12:15 04/29/21 13:15 DC 04/29/21 12:18 Ceftriaxone Sodium (Rocephin) 1 gm 1X ONCE IVP 04/29/21 12:30 04/29/21 12:31 DC 04/29/21 12:49 Azithromycin 500 mg/Sodium Chloride 250 ml @ 250 mls/hr 1X ONCE IV 04/29/21 12:30 04/29/21 13:29 DC 04/29/21 12:49 Furosemide (Lasix) 80 mg 1X ONCE IVP 04/29/21 13:30 04/29/21 13:31 Laboratory Tests Test 04/29/21 12:07 White Blood Count 9.0 x10^3/uL (4.0-11.0) Red Blood Count 3.81 x10^6/uL (4.30-5.70) L Hemoglobin 12.5 g/dL (13.0-17.5) L Hematocrit 38.8 % (39.0-53.0) L Mean Corpuscular Volume 102 fL (79-100) H Mean Corpuscular Hemoglobin 33 pg (25-35) Mean Corpuscular Hemoglobin Concent 32 g/dL (31-37) Red Cell Distribution Width 15.4 % (11.5-14.5) H Platelet Count 207 x10^3/uL (140-400) Neutrophils (%) (Auto) 82 % (31-73) H Lymphocytes (%) (Auto) 13 % (24-48) L Monocytes (%) (Auto) 5 % (0-9) Eosinophils (%) (Auto) 0 % (0-3) Basophils (%) (Auto) 0 % (0-3) Neutrophils # (Auto) 7.3 x10^3/uL (1.8-7.7) Lymphocytes # (Auto) 1.2 x10^3/uL (1.0-4.8) Monocytes # (Auto) 0.4 x10^3/uL (0.0-1.1) Eosinophils # (Auto) 0.0 x10^3/uL (0.0-0.7) Basophils # (Auto) 0.0 x10^3/uL (0.0-0.2) Laboratory Tests 04/29/21 12:07 Vital Signs: Vital Signs Date Time Temp Pulse Resp B/P (MAP) Pulse Ox O2 Delivery O2 Flow Rate FiO2 04/29/21 13:00 90 BiPAP/CPAP 04/29/21 12:28 104 29 161/88 (112) 98 BiPAP/CPAP 04/29/21 12:22 92 BiPAP/CPAP 04/29/21 11:58 106 31 186/113 (137) 73 NonRebreather Mask 04/29/21 11:38 106 27 170/102 (124) 69 Room Air Vital Signs Date Time Temp Pulse Resp B/P (MAP) Pulse Ox O2 Delivery O2 Flow Rate FiO2 04/29/21 12:22 92 BiPAP/CPAP (JOSE RAM APRN) EKG: EKG: EKG done at [address] Villavicencio at 12:00 shows sinus tachycardia with a left bundle branch block with a NC interval of 178 ms and a QTC of 504 ms with a heart rate of 106 no STEMI [] (JOSE RAM APRN) Radiology/Procedures: Radiology/Procedures: [REASON: soa PROCEDURE: CHEST AP ONLY EXAM: Chest, single view. HISTORY: Shortness of air. COMPARISON: 07/18/2017. FINDINGS: A frontal view of the chest obtained. There is diffuse lower lobe predominant interstitial infiltrate. There are suspected small pleural effusions. There is a stable cardiac silhouette and cardiac pacemaker. There is postoperative change involving the aortic valve. IMPRESSION: Diffuse interstitial infiltrate with suspected small pleural effusions. Electronically signed by: Silvia Logan MD (04/29/2021 12:29 PM) [id number]] (JOSE RAM APRN) Course & Med Decision Making: Course & Med Decision Making Pertinent Labs and Imaging studies reviewed. (See chart for details) Patient profoundly short of air, increased work of breathing noted did order CPAP for the patient. 1245 reassessment of patient on CPAP shows an oxygenation of 95%, bear hugger in place, patient continues to have moderate distress heart rate is 88, blood pressure is 161/88. [address] Donahue and he is agreeable to admitting this patient for congestive heart failure and hypoxia and respiratory distress, at the time of talking to Dr. Donahue patient did want to be a DO NOT INTUBATE and DNR, but after speaking with the patient further he does want everything done I will notify Dr. Donahue. Patient continues to be on BiPAP and tolerating it well. 1420 patient found in the room with no pulse and no respiratory effort, CPR was started by staff, Dr. Donahue is at bedside, patient was intubated by Dr. Villavicencio CPR was in progress see CODE BLUE sheet. I did contact Carmen Saleh who is a [id number] to the patient and she stated that the patient has been on hospice, and he was a DNR, Dr. Donahue was notified and at 1426 all CPR efforts were ceased at that time. Afua MURRY did speak to the family also at length, as did Dr. Donahue did speak to the family as well regarding this patient. (JOSE ARM APRN) Course & Med Decision Making Patient was admitted, boarding in the ER. He was found to be unresponsive, no pulse, in Asystole. CODE BLUE WAS ACTIVATED. Patient was rescusitated by ACLS protocol. Patient was intubated by this physician by rapid sequence intubation, using glidescope, ET # 7.5, with good CO2 detector, ET was secured at 20 cm at lip, Patient was in Asystole. (JARAD VILLAVICENCIO DO) Dragon Disclaimer: Dragon Disclaimer: This electronic medical record was generated, in whole or in part, using a voice recognition dictation system. (JSOE RAM APRN) Departure Departure Impression: Primary Impression: Respiratory failure with hypoxia Qualified Codes: J96.01 - Acute respiratory failure with hypoxia Additional Impression: Congestive heart failure (CHF) Qualified Codes: I50.9 - Heart failure, unspecified Disposition: ADMITTED INPATIENT Admitting Physician: SCOTT (JOSE RAM APRN) Condition: CRITICAL Referrals: KP RODRIGUEZ DO (PCP) JOSE RAM APRN Apr 29, 2021 12:37 JARAD VILLAVICENCIO DO Apr 30, 2021 06:05
--- NOTE | 2021-04-29 12:41 | NUR ---
Red baron add to pt on the high setting at 1240 by Pedro Melendez
[2021-04-29 12:50] LABS: CREATININE 1.8 mg/dL (0.7-1.3); GFR 35.8
[2021-04-29 12:56] LABS: ALBUMIN 3.5 g/dL (3.4-5.0); ALBUMIN/GLOBULIN RATIO 0.9 (1.0-1.7); TOTAL PROTEIN 7.4 g/dL (6.4-8.2)
[2021-04-29 13:04] LABS: INFLUENZA A PATIENT NEGATIVE (NEGATIVE); INFLUENZA B PATIENT NEGATIVE (NEGATIVE)
--- NOTE | 2021-04-29 13:23 | PDOC1 ---
History and Physical Date of Admission Date of Admission DATE: 04/29/21 TIME: 13:23 Past Medical History Cardiovascular: AFIB, HTN, Hyperlipidemia, Other Heme/Onc: Anemia NOS Renal/: Other Current Medications Current Medications Current Medications Dexamethasone Sodium Phosphate (Decadron) 10 mg 1X ONCE IV Last administered on 04/29/21at 12:18; Start 04/29/21 at 12:15; Stop 04/29/21 at 12:16; Status DC Sodium Chloride 1,000 ml @ 999 mls/hr 1X ONCE IV Last administered on 04/29/21at 12:18; Start 04/29/21 at 12:15; Stop 04/29/21 at 13:15; Status DC Ceftriaxone Sodium (Rocephin) 1 gm 1X ONCE IVP Last administered on 04/29/21at 12:49; Start 04/29/21 at 12:30; Stop 04/29/21 at 12:31; Status DC Azithromycin 500 mg/Sodium Chloride 250 ml @ 250 mls/hr 1X ONCE IV Last administered on 04/29/21at 12:49; Start 04/29/21 at 12:30; Stop 04/29/21 at 13:29 Active Scripts Active Cetirizine Hcl 10 Mg Tablet 1 Tab PO DAILY PRN Flonase Allergy Relief (Fluticasone Propionate) 9.9 Ml [place].susp 2 Sprays NS DAILY PRN Tessalon Perle (Benzonatate) 100 Mg Capsule 100 Mg PO PRN TID PRN Reported Tylenol (Acetaminophen) 325 Mg Tablet 2 Tab PO PRN Q4HRS Shivani-D 12 Hour Tablet (Fexofenadine/Pseudoephedrine) 1 Each Tab.er.12h 1 Tab PO BID Tamsulosin Hcl 0.4 Mg Cap.er.24h 1 Cap PO QHS Trazodone Hcl 50 Mg Tablet 1 Tab PO QHS Sucralfate 1 Gm Tablet 1 Tab PO TID Amitiza (Lubiprostone) 8 Mcg Capsule 1 Cap PO BID Amiodarone Hcl 200 Mg Tablet 1 Tab PO DAILY Senna S Tablet (Sennosides/Docusate Sodium) 1 Each Tablet 1 Each PO BID Miralax (Polyethylene Glycol 3350) 17 Gm Powd.pack 1 Packet PO DAILY Pantoprazole Sodium 40 Mg Tablet.dr 1 Tab PO DAILY Azelastine Hcl 137 Mcg/0.137 Ml [place].pump 2 [place] NS BID Levothyroxine Sodium 75 Mcg Tablet 1 Tab PO DAILY Calcium + Vit D & K Chew Tab (Ca Carbonate/Vitamin D3/Vit K) 1 Each Tab.chew 1 Each PO DAILY Aspirin 81 Mg Tab.chew 1 Tab PO DAILY Atorvastatin Calcium 40 Mg Tablet 1 Tab PO QHS Ferrous Sulfate 325 Mg Tablet 1 Tab PO DAILY Allergies Allergies: Coded Allergies: No Known Drug Allergies (Unverified , 11/09/16) Vitals Vitals Vital Signs Date Time Temp Pulse Resp B/P (MAP) Pulse Ox O2 Delivery O2 Flow Rate FiO2 04/29/21 12:28 104 29 161/88 (112) 98 BiPAP/CPAP Labs Labs Laboratory Tests Test 04/29/21 12:05 04/29/21 12:07 Influenza Type A Antigen Negative (NEGATIVE) Influenza Type B Antigen Negative (NEGATIVE) SARS-CoV-2 Antigen (Rapid) Negative (NEGATIVE) White Blood Count 9.0 x10^3/uL (4.0-11.0) Red Blood Count 3.81 x10^6/uL (4.30-5.70) Hemoglobin 12.5 g/dL (13.0-17.5) Hematocrit 38.8 % (39.0-53.0) Mean Corpuscular Volume 102 fL (79-100) Mean Corpuscular Hemoglobin 33 pg (25-35) Mean Corpuscular Hemoglobin Concent 32 g/dL (31-37) Red Cell Distribution Width 15.4 % (11.5-14.5) Platelet Count 207 x10^3/uL (140-400) Neutrophils (%) (Auto) 82 % (31-73) Lymphocytes (%) (Auto) 13 % (24-48) Monocytes (%) (Auto) 5 % (0-9) Eosinophils (%) (Auto) 0 % (0-3) Basophils (%) (Auto) 0 % (0-3) Neutrophils # (Auto) 7.3 x10^3/uL (1.8-7.7) Lymphocytes # (Auto) 1.2 x10^3/uL (1.0-4.8) Monocytes # (Auto) 0.4 x10^3/uL (0.0-1.1) Eosinophils # (Auto) 0.0 x10^3/uL (0.0-0.7) Basophils # (Auto) 0.0 x10^3/uL (0.0-0.2) Sodium Level 145 mmol/L (136-145) Potassium Level 5.0 mmol/L (3.5-5.1) Chloride Level 105 mmol/L (98-107) Carbon Dioxide Level 26 mmol/L (21-32) Anion Gap 14 (6-14) Blood Urea Nitrogen 38 mg/dL (8-26) Creatinine 1.8 mg/dL (0.7-1.3) Estimated GFR (Cockcroft-Gault) 35.8 BUN/Creatinine Ratio 21 (6-20) Glucose Level 257 mg/dL (70-99) Calcium Level 9.0 mg/dL (8.5-10.1) Total Bilirubin 1.0 mg/dL (0.2-1.0) Aspartate Amino Transf (AST/SGOT) 30 U/L (15-37) Alanine Aminotransferase (ALT/SGPT) 29 U/L (16-63) Alkaline Phosphatase 100 U/L (46-116) Troponin I High Sensitivity 39 ng/L (4-75) NN-Rbv-Q-Type Natriuretic Peptide 82356 pg/mL (0-449) Total Protein 7.4 g/dL (6.4-8.2) Albumin 3.5 g/dL (3.4-5.0) Albumin/Globulin Ratio 0.9 (1.0-1.7) Lipase 94 U/L (73-393) Laboratory Tests Test 04/29/21 12:05 04/29/21 12:07 Influenza Type A Antigen Negative (NEGATIVE) Influenza Type B Antigen Negative (NEGATIVE) SARS-CoV-2 Antigen (Rapid) Negative (NEGATIVE) White Blood Count 9.0 x10^3/uL (4.0-11.0) Red Blood Count 3.81 x10^6/uL (4.30-5.70) Hemoglobin 12.5 g/dL (13.0-17.5) Hematocrit 38.8 % (39.0-53.0) Mean Corpuscular Volume 102 fL (79-100) Mean Corpuscular Hemoglobin 33 pg (25-35) Mean Corpuscular Hemoglobin Concent 32 g/dL (31-37) Red Cell Distribution Width 15.4 % (11.5-14.5) Platelet Count 207 x10^3/uL (140-400) Neutrophils (%) (Auto) 82 % (31-73) Lymphocytes (%) (Auto) 13 % (24-48) Monocytes (%) (Auto) 5 % (0-9) Eosinophils (%) (Auto) 0 % (0-3) Basophils (%) (Auto) 0 % (0-3) Neutrophils # (Auto) 7.3 x10^3/uL (1.8-7.7) Lymphocytes # (Auto) 1.2 x10^3/uL (1.0-4.8) Monocytes # (Auto) 0.4 x10^3/uL (0.0-1.1) Eosinophils # (Auto) 0.0 x10^3/uL (0.0-0.7) Basophils # (Auto) 0.0 x10^3/uL (0.0-0.2) Sodium Level 145 mmol/L (136-145) Potassium Level 5.0 mmol/L (3.5-5.1) Chloride Level 105 mmol/L (98-107) Carbon Dioxide Level 26 mmol/L (21-32) Anion Gap 14 (6-14) Blood Urea Nitrogen 38 mg/dL (8-26) Creatinine 1.8 mg/dL (0.7-1.3) Estimated GFR (Cockcroft-Gault) 35.8 BUN/Creatinine Ratio 21 (6-20) Glucose Level 257 mg/dL (70-99) Calcium Level 9.0 mg/dL (8.5-10.1) Total Bilirubin 1.0 mg/dL (0.2-1.0) Aspartate Amino Transf (AST/SGOT) 30 U/L (15-37) Alanine Aminotransferase (ALT/SGPT) 29 U/L (16-63) Alkaline Phosphatase 100 U/L (46-116) Troponin I High Sensitivity 39 ng/L (4-75) GJ-Hfk-I-Type Natriuretic Peptide 69490 pg/mL (0-449) Total Protein 7.4 g/dL (6.4-8.2) Albumin 3.5 g/dL (3.4-5.0) Albumin/Globulin Ratio 0.9 (1.0-1.7) Lipase 94 U/L (73-393) VTE Prophylaxis Ordered VTE Prophylaxis Devices: Yes Justifications for Admission Other Justification RIFFEL,CHRISTOPHER S MD Apr 29, 2021 13:23
[2021-04-29] MEDS ORDERED: SODIUM BICARB ADULT 8.4% 50 MEQ/50 ML DISP.SYRIN. ONE (13:30)
[2021-04-29] MEDS ORDERED: EPINEPHrine SYRINGE 1 MG/10 ML SYRINGE. ONE (13:30)
[2021-04-29] MEDS ORDERED: FUROSEMIDE 100 MG/10 ML VIAL. IVP ONE (13:30)
[2021-04-29 13:53] LABS: BASE EXCESS ABG -4 mmol/L (-3-3); HCO3 ABG 23 mmol/L (21-28); PCO2 ABG 51 mmHg (35-46); PO2 ABG 60 mmHg (65-108); SAT O2 ABG 86 % (92-99)
[2021-04-29 13:58] VITALS: BP 127/56
[2021-04-29 14:34] LABS: FIO2 ABG 100/BIPAP
--- NOTE | 2021-04-29 15:33 | PDOC3 ---
Discharge Summary Visit Information Date of Admission: Apr 29, 2021 Date of Discharge: Apr 29, 2021 Final Diagnosis Problems Medical Problems: (1) Congestive heart failure (CHF) Status: Acute (2) Respiratory failure with hypoxia Status: Acute Brief Hospital Course Allergies Allergies Coded Allergies Type Severity Reaction Last Updated Verified No Known Drug Allergies 11/09/16 No Vital Signs Vital Signs Date Time Temp Pulse Resp B/P (MAP) Pulse Ox O2 Delivery O2 Flow Rate FiO2 04/29/21 13:58 102 34 127/56 (79) BiPAP/CPAP 04/29/21 13:28 94 Lab Results Laboratory Tests Test 04/29/21 11:54 04/29/21 12:05 04/29/21 12:07 O2 Saturation 86 % (92-99) Arterial Blood pH 7.28 (7.35-7.45) Arterial Blood pCO2 at Patient Temp 51 mmHg (35-46) Arterial Blood pO2 at Patient Temp 60 mmHg (65-108) Arterial Blood HCO3 23 mmol/L (21-28) Arterial Blood Base Excess -4 mmol/L (-3-3) FiO2 100/bipap Influenza Type A Antigen Negative (NEGATIVE) Influenza Type B Antigen Negative (NEGATIVE) SARS-CoV-2 Antigen (Rapid) Negative (NEGATIVE) White Blood Count 9.0 x10^3/uL (4.0-11.0) Red Blood Count 3.81 x10^6/uL (4.30-5.70) Hemoglobin 12.5 g/dL (13.0-17.5) Hematocrit 38.8 % (39.0-53.0) Mean Corpuscular Volume 102 fL (79-100) Mean Corpuscular Hemoglobin 33 pg (25-35) Mean Corpuscular Hemoglobin Concent 32 g/dL (31-37) Red Cell Distribution Width 15.4 % (11.5-14.5) Platelet Count 207 x10^3/uL (140-400) Neutrophils (%) (Auto) 82 % (31-73) Lymphocytes (%) (Auto) 13 % (24-48) Monocytes (%) (Auto) 5 % (0-9) Eosinophils (%) (Auto) 0 % (0-3) Basophils (%) (Auto) 0 % (0-3) Neutrophils # (Auto) 7.3 x10^3/uL (1.8-7.7) Lymphocytes # (Auto) 1.2 x10^3/uL (1.0-4.8) Monocytes # (Auto) 0.4 x10^3/uL (0.0-1.1) Eosinophils # (Auto) 0.0 x10^3/uL (0.0-0.7) Basophils # (Auto) 0.0 x10^3/uL (0.0-0.2) Sodium Level 145 mmol/L (136-145) Potassium Level 5.0 mmol/L (3.5-5.1) Chloride Level 105 mmol/L (98-107) Carbon Dioxide Level 26 mmol/L (21-32) Anion Gap 14 (6-14) Blood Urea Nitrogen 38 mg/dL (8-26) Creatinine 1.8 mg/dL (0.7-1.3) Estimated GFR (Cockcroft-Gault) 35.8 BUN/Creatinine Ratio 21 (6-20) Glucose Level 257 mg/dL (70-99) Lactic Acid Level 4.8 mmol/L (0.4-2.0) Calcium Level 9.0 mg/dL (8.5-10.1) Total Bilirubin 1.0 mg/dL (0.2-1.0) Aspartate Amino Transf (AST/SGOT) 30 U/L (15-37) Alanine Aminotransferase (ALT/SGPT) 29 U/L (16-63) Alkaline Phosphatase 100 U/L (46-116) Troponin I High Sensitivity 39 ng/L (4-75) OS-Ndt-R-Type Natriuretic Peptide 80271 pg/mL (0-449) Total Protein 7.4 g/dL (6.4-8.2) Albumin 3.5 g/dL (3.4-5.0) Albumin/Globulin Ratio 0.9 (1.0-1.7) Lipase 94 U/L (73-393) Laboratory Tests Test 04/29/21 11:54 04/29/21 12:05 04/29/21 12:07 O2 Saturation 86 % (92-99) Arterial Blood pH 7.28 (7.35-7.45) Arterial Blood pCO2 at Patient Temp 51 mmHg (35-46) Arterial Blood pO2 at Patient Temp 60 mmHg (65-108) Arterial Blood HCO3 23 mmol/L (21-28) Arterial Blood Base Excess -4 mmol/L (-3-3) FiO2 100/bipap Influenza Type A Antigen Negative (NEGATIVE) Influenza Type B Antigen Negative (NEGATIVE) SARS-CoV-2 Antigen (Rapid) Negative (NEGATIVE) White Blood Count 9.0 x10^3/uL (4.0-11.0) Red Blood Count 3.81 x10^6/uL (4.30-5.70) Hemoglobin 12.5 g/dL (13.0-17.5) Hematocrit 38.8 % (39.0-53.0) Mean Corpuscular Volume 102 fL (79-100) Mean Corpuscular Hemoglobin 33 pg (25-35) Mean Corpuscular Hemoglobin Concent 32 g/dL (31-37) Red Cell Distribution Width 15.4 % (11.5-14.5) Platelet Count 207 x10^3/uL (140-400) Neutrophils (%) (Auto) 82 % (31-73) Lymphocytes (%) (Auto) 13 % (24-48) Monocytes (%) (Auto) 5 % (0-9) Eosinophils (%) (Auto) 0 % (0-3) Basophils (%) (Auto) 0 % (0-3) Neutrophils # (Auto) 7.3 x10^3/uL (1.8-7.7) Lymphocytes # (Auto) 1.2 x10^3/uL (1.0-4.8) Monocytes # (Auto) 0.4 x10^3/uL (0.0-1.1) Eosinophils # (Auto) 0.0 x10^3/uL (0.0-0.7) Basophils # (Auto) 0.0 x10^3/uL (0.0-0.2) Sodium Level 145 mmol/L (136-145) Potassium Level 5.0 mmol/L (3.5-5.1) Chloride Level 105 mmol/L (98-107) Carbon Dioxide Level 26 mmol/L (21-32) Anion Gap 14 (6-14) Blood Urea Nitrogen 38 mg/dL (8-26) Creatinine 1.8 mg/dL (0.7-1.3) Estimated GFR (Cockcroft-Gault) 35.8 BUN/Creatinine Ratio 21 (6-20) Glucose Level 257 mg/dL (70-99) Lactic Acid Level 4.8 mmol/L (0.4-2.0) Calcium Level 9.0 mg/dL (8.5-10.1) Total Bilirubin 1.0 mg/dL (0.2-1.0) Aspartate Amino Transf (AST/SGOT) 30 U/L (15-37) Alanine Aminotransferase (ALT/SGPT) 29 U/L (16-63) Alkaline Phosphatase 100 U/L (46-116) Troponin I High Sensitivity 39 ng/L (4-75) MU-Dvg-V-Type Natriuretic Peptide 19009 pg/mL (0-449) Total Protein 7.4 g/dL (6.4-8.2) Albumin 3.5 g/dL (3.4-5.0) Albumin/Globulin Ratio 0.9 (1.0-1.7) Lipase 94 U/L (73-393) Brief Hospital Course Time of 1426 Discharge Information Scheduled Acetaminophen (Tylenol) 325 Mg Tablet, 2 TAB PO PRN Q4HRS, #30 (Reported) Entered as Reported by: YUMIKO NOVAK on 11/06/16 1219 Amiodarone Hcl (Amiodarone Hcl) 200 Mg Tablet, 1 TAB PO DAILY, #90 Ref 1 (Reported) Entered as Reported by: YUMIKO NOVAK on 11/06/16 1150 Aspirin (Aspirin) 81 Mg Tab.chew, 1 TAB PO DAILY, #30 Ref 3 (Reported) Entered as Reported by: LENI ZUÑIGA on 12/29/13 0856 Atorvastatin Calcium (Atorvastatin Calcium) 40 Mg Tablet, 1 TAB PO QHS, #90 Ref 3 (Reported) Entered as Reported by: LENI ZUÑIGA on 12/29/13 0856 Azelastine Hcl (Azelastine Hcl) 137 Mcg/0.137 Ml [place].pump, 2 SPRAY NS BID, #90 Ref 3 (Reported) Entered as Reported by: LENI ZUÑIGA on 12/29/13 0856 Ca Carbonate/Vitamin D3/Vit K (Calcium + Vit D & K Chew Tab) 1 Each Tab.chew, 1 EACH PO DAILY, (Reported) Entered as Reported by: LENI ZUÑIGA on 12/29/13 0856 Ferrous Sulfate (Ferrous Sulfate) 325 Mg Tablet, 1 TAB PO DAILY, #30 Ref 3 (Reported) Entered as Reported by: LENI ZUÑIGA on 12/29/13 0856 Fexofenadine/Pseudoephedrine (Shivani-D 12 Hour Tablet) 1 Each Tab.er.12h, 1 TAB PO BID, #60 (Reported) Entered as Reported by: YUMIKO NOVAK on 11/06/16 1200 Levothyroxine Sodium (Levothyroxine Sodium) 75 Mcg Tablet, 1 TAB PO DAILY, #30 Ref 5 (Reported) Entered as Reported by: LENI ZUÑIGA on 12/29/13 0856 Lubiprostone (Amitiza) 8 Mcg Capsule, 1 CAP PO BID, #60 Ref 5 (Reported) Entered as Reported by: YUMIKO NOVAK on 11/06/16 1150 Pantoprazole Sodium (Pantoprazole Sodium ) 40 Mg Tablet.dr, 1 TAB PO DAILY, #30 Ref 3 (Reported) Entered as Reported by: LENI ZUÑIGA on 12/29/13 0856 Polyethylene Glycol 3350 (Miralax) 17 Gm Powd.pack, 1 PACKET PO DAILY, #30 Ref 3 (Reported) Entered as Reported by: LENI ZUÑIGA on 12/29/13 0856 Sennosides/Docusate Sodium (Senna S Tablet) 1 Each Tablet, 1 EACH PO BID, (Reported) Entered as Reported by: LENI ZUÑIGA on 12/29/13 0856 Sucralfate (Sucralfate) 1 Gm Tablet, 1 TAB PO TID, #90 Ref 11 (Reported) Entered as Reported by: YUMIKO NOVAK on 11/06/16 1155 Tamsulosin Hcl (Tamsulosin Hcl) 0.4 Mg Cap.er.24h, 1 CAP PO QHS, #30 Ref 5 (Reported) Entered as Reported by: YUMIKO NOVAK on 11/06/16 1157 Trazodone Hcl (Trazodone Hcl) 50 Mg Tablet, 1 TAB PO QHS, #30 Ref 1 (Reported) Entered as Reported by: YUMIKO NOVAK on 11/06/16 1156 Scheduled PRN Benzonatate (Tessalon Perle) 100 Mg Capsule, 100 MG PO PRN TID PRN for COUGH, #15 Prescribed by: PARAMJIT STEIN D.O. on 07/18/17 1122 Cetirizine Hcl (Cetirizine Hcl) 10 Mg Tablet, 1 TAB PO DAILY PRN for CONGESTION, #15 Ref 5 Prescribed by: PARAMJIT STEIN D.O. on 07/18/171121 Fluticasone Propionate (Flonase Allergy Relief) 9.9 Ml [place].susp, 2 SPRAYS NS DAILY PRN for CONGESTION, #1 Prescribed by: PARAMJIT STEIN D.O. on 07/18/171121 NEO CINTRON MD Apr 29, 2021 15:33
== END 2021-04-29 14:26 ==
LOC: ER 11:38
DX: J96.01 Acute respiratory failure with hypoxia (principal); Z20.822 Contact with and (suspected) exposure to COVID-19; I11.0 Hypertensive heart disease with heart failure; I50.9 Heart failure, unspecified; E03.9 Hypothyroidism, unspecified; Z87.891 Personal history of nicotine dependence; I44.7 Left bundle-branch block, unspecified; R00.0 Tachycardia, unspecified
CPT/HCPCS: 36415; 36600; 71045; 80053; 82805; 83605; 83690; 83880; 84484; 85025; 87040; 87428; 93005; 94660; 96365; 96375; 99285; C9803; J0171; J0456; J0696; J1100; J3490; J7030; J7050; U0003